=== PATIENT | male | born 1950 | race Caucasian/White ===

== ENCOUNTER → 2021-06-14 | Outpatient (CLI) | payer OTHER | LOC: SJCVC 14:17 | PROVIDERS: ATTEND Internal Medicine | DX: R94.31 Abnormal electrocardiogram [ECG] [EKG] (principal); I44.0 Atrioventricular block, first degree; R06.00 Dyspnea, unspecified; Z13.220 Encounter for screening for lipoid disorders; Z72.89 Other problems related to lifestyle; Z79.899 Other long term (current) drug therapy ==

== ENCOUNTER → 2021-06-20 | Outpatient (CLI) | payer OTHER | LOC: SJCVCIMAG 07:41 | PROVIDERS: ATTEND Internal Medicine | DX: I35.8 Other nonrheumatic aortic valve disorders (principal); I10 Essential (primary) hypertension; I44.0 Atrioventricular block, first degree; R00.2 Palpitations; Z72.89 Other problems related to lifestyle; Z79.899 Other long term (current) drug therapy ==

== ENCOUNTER → 2021-08-15 | Outpatient (CLI) | payer OTHER | LOC: SJCVC 12:50 | PROVIDERS: ATTEND Internal Medicine | DX: R06.00 Dyspnea, unspecified (principal); I44.0 Atrioventricular block, first degree; R00.2 Palpitations; Z79.899 Other long term (current) drug therapy; Z72.89 Other problems related to lifestyle ==